=== PATIENT | female | born 1995 | race Hispanic/Latino ===

== ENCOUNTER 2023-10-26 03:41 | Inpatient (IN) | payer BC, OTHER ==
[~2023-10-26] VITALS: Ht 175.3 cm; Wt 112.0 kg
[~2023-10-26 03:41] MED LIST: ADVIL200 MG PO; HYDROCODON-ACE1 EA11 PO; KEFLEX500 MG PO
[2023-10-26] MEDS ORDERED: LACTATED RINGER'S 1,000 ML IV PRN (06:15)
[2023-10-26] MEDS ORDERED: LIDOCAINE 2% VISCOUS 6 ML SYR TOP ONE ×4 (06:15→08:30)
[2023-10-26] MEDS ORDERED: OXYTOCIN/DEXTROSE 5% 20 UNITS/100 ML BAG IV SCH (06:15)
[2023-10-26] MEDS ORDERED: MAGNESIUM HYDROXIDE/AL HYDROX 30 ML CUP PO PRN ×2 (06:15→08:30)
[2023-10-26] MEDS ORDERED: CALCIUM CARBONATE 500 MG CHEW PO PRN ×2 (06:15→08:30)
[2023-10-26 06:30] LABS: HEMATOCRIT 38.6 % (35.0-50.0); MCH 29.9 (27-36); MCHC 33.8 g/dl (30-36); MCV 88.5 fl (81-99); RBC 4.36 M/ul (4.3-5.7); RDW 15.8 (10.5-15.0)
[2023-10-26 06:43] LABS: AMPHETAMINES, URINE NEGATIVE (NEGATIVE); BARBITURATES, URINE NEGATIVE (NEGATIVE); BENZODIAZEPINE, URINE NEGATIVE (NEGATIVE); BUPRENORPHINE, URINE NEGATIVE (NEGATIVE); CANNABINOID, URINE NEGATIVE (NEGATIVE); COCAINE, URINE NEGATIVE (NEGATIVE); ECSTASY, URINE NEGATIVE (NEGATIVE); FENTANYL, URINE NEGATIVE (NEGATIVE); METHADONE, URINE NEGATIVE (NEGATIVE); OPIATES, URINE NEGATIVE (NEGATIVE); OXYCODONE, URINE NEGATIVE (NEGATIVE); PHENCYCLIDINE, URINE NEGATIVE (NEGATIVE)
[2023-10-26 07:03] LABS: ABO A
[2023-10-26 07:04] LABS: ANTIBODY SCREEN NEGATIVE; RH POSITIVE
[2023-10-26 07:06] VITALS: BP 136/77
[2023-10-26] MEDS ORDERED: ROPIVACAINE 0.2% 200 ML BAG ONE (07:20)
[2023-10-26] MEDS ORDERED: BUPIVACAINE HCL 0.25% 10 ML SDV INJ ONE (07:20)
[2023-10-26] MEDS ORDERED: LIDOCAINE HCL 2% 5 ML SDV ONE (07:20)
[2023-10-26] MEDS ORDERED: dexmedeTOMIDine HCl 200 MCG/2 ML VIAL ONE (07:56)
[2023-10-26] MEDS ORDERED: LIDOCAINE 2% W/ EPI 1:200,000 20 ML SDV ONE (07:56)
[2023-10-26] MEDS ORDERED: LACTATED RINGER'S 500 ML IV PRN (08:30)
[2023-10-26] MEDS ORDERED: MAGNESIUM HYDROXIDE 30 ML UDC PO PRN (08:30)
[2023-10-26] MEDS ORDERED: WITCH HAZEL/GLYCERIN 1 EA PAD TOP PRN (08:30)
[2023-10-26] MEDS ORDERED: ROPIVACAINE 0.2% 200 ML BAG EPIDURAL SCH ×2 (08:30)
[2023-10-26] MEDS ORDERED: ACETAMINOPHEN 325 MG TAB PO PRN (08:30)
[2023-10-26] MEDS ORDERED: OXYTOCIN/0.9 % SODIUM CHLORIDE 500 ML IV SCH (08:30)
[2023-10-26] MEDS ORDERED: HYDROCORTISONE ACETATE 25 MG SUPP PR PRN (08:30)
[2023-10-26] MEDS ORDERED: LACTATED RINGER'S 2,000 ML IV ONE (08:30)
[2023-10-26] MEDS ORDERED: IBUPROFEN 600 MG TAB PO PRN (08:30)
[2023-10-26] MEDS ORDERED: ePHEDrine sulfate 5 MG/ML SYRINGE IV PRN (08:30)
[2023-10-26] MEDS ORDERED: HYDROCODONE/ACETA 5/325 TAB PO PRN (08:30)
[2023-10-26] MEDS ORDERED: BENZOCAINE 60 ML AEROSOL TOP PRN (08:30)
[2023-10-26] MEDS ORDERED: SENNOSIDES/DOCUSATE 1 EA TAB PO SCH (09:00)
[2023-10-27 05:18] LABS: HEMATOCRIT 29.8 % (35.0-50.0); HEMOGLOBIN 10.3 g/dL (12.0-18.0); MCH 30.6 (27-36); MCHC 34.5 g/dl (30-36); MCV 88.7 fl (81-99); RBC 3.36 M/ul (4.3-5.7); RDW 15.4 (10.5-15.0)
--- NOTE | 2023-10-27 09:43 | PR ---
[facility] [address] [facility] [facility] [place], [place] [address] Signed PP Progress Notes Datetime Report Generated by CPN: 10/27/2023 09:43 SUBJECTIVE: [id number] Pain: Within Normal Limits Nausea/Vomiting: Denies Vital Signs: [id number] Vital Signs: Reviewed; Within Normal Limits EXAM: Met Cardiovascular: Not Done Respiratory: Not Done Abdomen/Uterus: Abnormal Lochia: Normal Vulva/Perineum: Not Done Breasts: Not Done CVA Tenderness: Not Done Extremities: Normal Incision: Not Applicable Progress: Normal Exam Comments: Fundus firm, NT @ U-2. H/H 10.3/29.8, WBC 8.7, plat 220k IMPRESSION/PLAN/PROCEDURES: [id number] Impression: Normal Progression Plan: Discharge Procedures: None Progress Notes: Doing well. She would like discharge today. Signing Physician: Claudia Kirby MD Copies: ~ *Electronically Signed* 10/27/23 0943 CLAUDIA KIRBY MD PATIENT NAME: CAROLA MARKHAM PROGRESS NOTE DATE OF : 96 PHYSICIAN: CLAUDIA KIRBY MD RPT #: [id number] REPORT IS CONFIDENTIAL AND NOT TO BE RELEASED WITHOUT AUTHORIZATION
[2023-10-27] MEDS ORDERED: MEASLES,MUMPS&RUBELLA VACCINE 1 VIAL VIAL SUB-Q ONE (10:00)
[2023-10-27] MEDS ORDERED: MEASLES,MUMPS&RUBELLA VACCINE 1 VIAL VIAL ONE (12:04)
== END 2023-10-27 12:35 | disposition home or self-care (01) | DRG 807 ==
LOC: FBCO 03:41 → FBC 05:55
PROVIDERS: ADMIT Obstetrics & Gynecology; ATTEND Obstetrics & Gynecology
PROC: 10E0XZZ Delivery of Products of Conception, External Approach (ICD-10-PCS; principal; 2023-10-26)
PROC: 0KQM0ZZ Repair Perineum Muscle, Open Approach (ICD-10-PCS; 2023-10-26)
PROC: 10907ZC Drainage of Amniotic Fluid, Therapeutic from Products of Conception, Via Natural or Artificial Opening (ICD-10-PCS; 2023-10-26)
PROC: 3E0R3BZ Introduction of Anesthetic Agent into Spinal Canal, Percutaneous Approach (ICD-10-PCS; 2023-10-26)
PROC: 00HU33Z Insertion of Infusion Device into Spinal Canal, Percutaneous Approach (ICD-10-PCS; 2023-10-26)
DX: O62.3 Precipitate labor (principal); Z37.0 Single live birth; Z3A.39 39 weeks gestation of pregnancy; O70.1 Second degree perineal laceration during delivery
CPT/HCPCS: 01960; 36415; 80307; 85027; 86850; 86900; 86901; 90707; A9270; J2001; J2590; J2795; J7121